=== PATIENT | male | born 1975 | race Caucasian/White ===

== ENCOUNTER 2018-06-22 10:08 | Emergency (ER) | payer OTHER, SELFPAY ==
[2018-06-22 10:23] VITALS: BP 162/99; PULSE 80; RESP 19; TEMP 37; O2SAT 95
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
--- NOTE | 2018-06-22 11:45 | PC.NURSE ---
ambulate to room 12, cooperative with care, with good eye contact. skin warm dry pink.
[2018-06-22 12:05] VITALS: BP 141/93; PULSE 71; RESP 17; O2SAT 97
== END 2018-06-22 12:08 | disposition home or self-care (01) ==
PROVIDERS: Emergency Provider Emergency Medicine
DX: F41.9 Anxiety disorder, unspecified (principal); F43.9 Reaction to severe stress, unspecified
CPT/HCPCS: 99282; 99283

== ENCOUNTER → 2018-06-29 09:34 | Outpatient (CLI) | payer OTHER, SELFPAY ==
[2018-06-29 10:00] LABS: Add Manual Diff / Slide Review NO; Basophils Absolute Auto 100 /uL (0-100); Eosinophils Absolute Auto 200 /uL (0-450); Hematocrit 43.3 % (41-53); Hemoglobin 14.9 g/dL (13.5-17.5); Lymphocytes Absolute Auto 1500 /uL (1100-4500); Lymphocytes Percent Auto 29.2 % (25-40); Mean Corpuscular HGB Conc 34.5 % (30-36); Mean Corpuscular Hemoglobin 30.6 PG (26-34); Mean Corpuscular Volume 88.6 fL (80-100); Monocytes Absolute Auto 500 /uL (0-900); Monocytes Percent Auto 9.9 % (3-14); Neutrophils Absolute Auto 2900 /uL (1500-7000); Neutrophils Percent Auto 56.9 % (50-75); Platelet Count 341 X10^3/uL (150-400); Red Blood Cell Count 4.89 X10^6/uL (4.5-5.9); Red Cell Distribution Width 12.8 % (11.6-14.8)
[2018-06-29 10:49] LABS: Alanine Aminotransferase 25 IU/L (21-72); Albumin 4.8 g/dL (3.5-5.0); Albumin Globulin Ratio 1.5 (1.0-2.8); Alkaline Phosphatase 59 U/L (38-126); Aspartate Aminotransferase 16 IU/L (17-59); BUN Creatinine Ratio 12.5 (6-22); Bilirubin Total 0.6 mg/dL (0.2-1.3); Blood Urea Nitrogen 10 mg/dL (9-20); Calcium 10.3 mg/dL (8.4-10.2); Carbon Dioxide 25 mmol/L (22-32); Chloride 104 mmol/L (98-107); Estimated Glomerular Filt Rate > 60.0 mL/min (>60); Globulin 3.1 g/dL (1.7-4.1); Glucose 105 mg/dL (70-100); HEMOLYSIS < 15 (0-50); Potassium 4.6 mmol/L (3.4-5.1); Sodium 139 mmol/L (137-145); Total Protein 7.9 g/dL (6.3-8.2)
[2018-06-29 11:17] LABS: TSH w/ Reflex to FT4 1.71 uIU/mL (0.47-4.68)
== END ==
PROVIDERS: Visit Provider Hospitalist
DX: F32.9 Major depressive disorder, single episode, unspecified (principal); F41.9 Anxiety disorder, unspecified
CPT/HCPCS: 36415; 80053; 84443; 85025

== ENCOUNTER → 2019-09-09 09:48 | Outpatient (CLI) | payer OTHER, SELFPAY ==
[2019-09-09 10:37] LABS: Add Manual Diff / Slide Review NO; Basophils Absolute Auto 0 /uL (0-100); Basophils Percent Auto 0.5 % (0-2); Eosinophils Absolute Auto 100 /uL (0-450); Eosinophils Percent Auto 2.5 % (2-4); Hematocrit 44.3 % (41-53); Hemoglobin 15.7 g/dL (13.5-17.5); Lymphocytes Absolute Auto 1300 /uL (1100-4500); Lymphocytes Percent Auto 27.5 % (25-40); Mean Corpuscular HGB Conc 35.5 % (30-36); Mean Corpuscular Hemoglobin 31.8 PG (26-34); Mean Corpuscular Volume 89.6 fL (80-100); Monocytes Absolute Auto 400 /uL (0-900); Monocytes Percent Auto 7.4 % (3-14); Neutrophils Absolute Auto 3000 /uL (1500-7000); Neutrophils Percent Auto 62.1 % (50-75); Platelet Count 302 X10^3/uL (150-400); Red Blood Cell Count 4.94 X10^6/uL (4.5-5.9); Red Cell Distribution Width 13.1 % (11.6-14.8); White Blood Cell Count 4.8 X10^3/uL (4.5-11.0)
[2019-09-09 11:25] LABS: Alanine Aminotransferase 40 IU/L (<50); Albumin 4.6 g/dL (3.5-5.0); Albumin Globulin Ratio 1.6 (1.0-2.8); Alkaline Phosphatase 56 U/L (38-126); Aspartate Aminotransferase 28 IU/L (17-59); BUN Creatinine Ratio 14.1 (6-22); Bilirubin Total 0.5 mg/dL (0.2-1.3); Blood Urea Nitrogen 10 mg/dL (9-20); Carbon Dioxide 22 mmol/L (22-32); Chloride 108 mmol/L (98-107); Cholesterol 239 mg/dL (140-199); Estimated Glomerular Filt Rate > 60.0 mL/min (>60); Globulin 2.8 g/dL (1.7-4.1); Glucose 123 mg/dL (70-100); HDL Cholesterol 38 mg/dL (40-60); HEMOLYSIS < 15 (0-50); LDL Cholesterol Calculated 177 mg/dL (<100); Potassium 4.5 mmol/L (3.4-5.1); Sodium 140 mmol/L (137-145); Total Protein 7.4 g/dL (6.3-8.2); Triglycerides 119 mg/dL (35-150)
[2019-09-09 11:53] LABS: TSH w/ Reflex to FT4 1.45 uIU/mL (0.47-4.68)
== END ==
PROVIDERS: PCP Internal Medicine; Referring Provider Internal Medicine; Visit Provider Internal Medicine
DX: Z13.1 Encounter for screening for diabetes mellitus (principal); Z13.6 Encounter for screening for cardiovascular disorders; E78.00 Pure hypercholesterolemia, unspecified; F43.20 Adjustment disorder, unspecified; G89.29 Other chronic pain; M25.511 Pain in right shoulder
CPT/HCPCS: 36415; 80053; 80061; 84443; 85025

== ENCOUNTER → 2020-03-08 11:30 | Outpatient (CLI) | payer OTHER, SELFPAY ==
[2020-03-08 12:53] LABS: BUN Creatinine Ratio 11.5 (6-22); Blood Urea Nitrogen 9 mg/dL (9-20); Calcium 9.6 mg/dL (8.4-10.2); Carbon Dioxide 24 mmol/L (22-32); Chloride 105 mmol/L (98-107); Cholesterol 250 mg/dL (140-199); Estimated Glomerular Filt Rate > 60.0 mL/min (>60); Glucose 104 mg/dL (70-100); HDL Cholesterol 38 mg/dL (40-60); HEMOLYSIS < 15 (0-50); LDL Cholesterol Calculated 183 mg/dL (<100); Sodium 139 mmol/L (137-145); Triglycerides 143 mg/dL (35-150)
[2020-03-08 12:57] LABS: Lithium < 0.2 mmol/L (0.6-1.2)
== END ==
PROVIDERS: PCP Internal Medicine; Referring Provider Internal Medicine; Visit Provider Psychiatry & Neurology Psychiatry
DX: F31.9 Bipolar disorder, unspecified (principal); E78.00 Pure hypercholesterolemia, unspecified
CPT/HCPCS: 36415; 80048; 80061; 80178

== ENCOUNTER → 2020-03-23 13:57 | Outpatient (CLI) | payer OTHER, SELFPAY ==
[2020-03-27 06:26] LABS: Percent Free Testosterone 4.19 % (1.50-4.20); Testosterone Free 14.07 ng/dL (5.00-21.00); Testosterone Total 335.8 ng/dL (264.0-916.0)
== END ==
PROVIDERS: PCP Internal Medicine; Referring Provider Internal Medicine; Visit Provider Internal Medicine
DX: N52.9 Male erectile dysfunction, unspecified (principal); R53.83 Other fatigue
CPT/HCPCS: 36415; 84402; 84403

== ENCOUNTER → 2023-03-25 08:35 | Outpatient (CLI) | payer OTHER, SELFPAY ==
[2023-03-25 10:13] LABS: Add Manual Diff / Slide Review NO; Basophils Absolute Auto 0 /uL (0-100); Basophils Percent Auto 0.4 % (0-2); Eosinophils Absolute Auto 100 /uL (0-450); Eosinophils Percent Auto 1.8 % (2-4); Hematocrit 42.1 % (41-53); Hemoglobin 14.5 g/dL (13.5-17.5); Lymphocytes Absolute Auto 1400 /uL (1100-4500); Lymphocytes Percent Auto 24.6 % (25-40); Mean Corpuscular HGB Conc 34.4 % (30-36); Mean Corpuscular Hemoglobin 30.6 PG (26-34); Mean Corpuscular Volume 89.1 fL (80-100); Monocytes Absolute Auto 400 /uL (0-900); Monocytes Percent Auto 7.1 % (3-14); Neutrophils Absolute Auto 3700 /uL (1500-7000); Neutrophils Percent Auto 66.1 % (50-75); Platelet Count 311 X10^3/uL (150-400); Red Blood Cell Count 4.73 X10^6/uL (4.5-5.9); Red Cell Distribution Width 13.5 % (11.6-14.8); White Blood Cell Count 5.6 X10^3/uL (4.5-11.0)
[2023-03-25 10:22] LABS: Hemoglobin A1C% w Est Avg Glu 5.4 % (4.0-6.0)
[2023-03-25 10:28] LABS: Alanine Aminotransferase 38 IU/L (<50); Albumin 4.1 g/dL (3.5-5.0); Albumin Globulin Ratio 1.4 (1.0-2.8); Alkaline Phosphatase 57 U/L (38-126); Aspartate Aminotransferase 26 IU/L (17-59); BUN Creatinine Ratio 15.7 (6-22); Bilirubin Total 0.7 mg/dL (0.2-1.3); Blood Urea Nitrogen 11 mg/dL (9-20); Calcium 9.6 mg/dL (8.4-10.2); Carbon Dioxide 23 mmol/L (22-32); Chloride 105 mmol/L (98-107); Cholesterol 240 mg/dL (140-199); Estimated Glomerular Filt Rate > 60 mL/min (>60); Glucose 106 mg/dL (70-100); HDL Cholesterol 45 mg/dL (40-60); HEMOLYSIS < 15 (0-50); LDL Cholesterol Calculated 156 mg/dL (<100); Potassium 4.4 mmol/L (3.4-5.1); Sodium 137 mmol/L (137-145); Total Protein 7.1 g/dL (6.3-8.2); Triglycerides 197 mg/dL (35-150)
[2023-03-25 10:36] LABS: Vitamin D 25 Hydroxy (D3) 21.9 ng/mL (30.0-100.0)
[2023-03-25 10:49] LABS: Free T3, Triiodothyronine Free 3.83 pg/mL (2.77-5.27); Free T4, Direct Thyroxine 1.09 ng/dL (0.78-2.19); T4 Total Thyroxine 7.33 ug/dL (5.5-11.0)
[2023-03-25 10:53] LABS: Estradiol, Total 41.7 pg/mL
[2023-03-25 10:56] LABS: Prostate Specific Antigen 0.584 ng/mL (0.10-4.00)
[2023-03-25 11:02] LABS: Thyroid Stimulating Hormone 2.03 uIU/mL (0.47-4.68)
[2023-03-25 11:32] LABS: Vitamin B12 286 pg/mL (239-931)
[2023-03-26 08:26] LABS: Thyroid Peroxidase Antibodies 13 IU/mL (0-34)
[2023-03-26 14:24] LABS: Sex Hormone Binding Globulin 20.7 nmol/L (16.5-55.9)
[2023-03-26 19:06] LABS: Anti Thyroglobulin Antibody <1.0 IU/mL (0.0-0.9)
[2023-03-28 00:56] LABS: Insulin Level Total 11.8 uIU/mL (2.6-24.9)
[2023-04-01 12:36] LABS: Pregnenolone <10 ng/dL (.)
[2023-04-03 17:48] LABS: Percent Free Testosterone 3.23 % (1.50-4.20); Testosterone Free 8.93 ng/dL (5.00-21.00); Testosterone Total 276.4 ng/dL (264.0-916.0)
== END ==
LOC: LAB 08:44
PROVIDERS: PCP Internal Medicine; Referring Provider Nurse Practitioner Family; Visit Provider Nurse Practitioner Family
DX: Z13.29 Encounter for screening for other suspected endocrine disorder (principal); E03.9 Hypothyroidism, unspecified; Z86.39 Personal history of other endocrine, nutritional and metabolic disease; Z51.81 Encounter for therapeutic drug level monitoring; Z79.890 Hormone replacement therapy; F41.9 Anxiety disorder, unspecified; R53.83 Other fatigue; E66.9 Obesity, unspecified
CPT/HCPCS: 36415; 80053; 80061; 82306; 82607; 82627; 82670; 82746; 83036; 83525; 84140; 84153; 84270; 84402; 84403; 84436; 84439; 84443; 84481; 84482; 85025; 86376; 86800

== ENCOUNTER 2024-05-19 10:20 | Emergency (ER) | payer OTHER, SELFPAY ==
[2024-05-19 10:43] VITALS: BP 157/92; PULSE 83; RESP 16; TEMP 36.1; O2SAT 98; BMI 30.6
--- NOTE | 2024-05-19 11:20 | PC.NURSE ---
patient presented to the ED with 8/10 pain in his left lower back and intermittent numbness and tingling down his left leg. He denies bowel or bladder dysfunction, or fevers. No GI/ issues as well. He has a history of bulging disks at the level of L4-5 and has experienced sciatica in the past. He states that this does not feel like the same pain. He is most comfortable in the standing position and states that sitting causes the pain to get worse. His leg currently is slightly numb with tingling while sitting reclined in a recliner. When he stands up he gets a brief moment of intense pain with a throbbing sensation that diminishes as he begins to walk.
--- NOTE | 2024-05-19 11:38 | DI.MRI.S_ITS ---
PROCEDURE: MR LUMBAR SPINE WO CON INDICATIONS: Left leg weakness and paresthesia TECHNIQUE: Noncontrast sagittal T1 spin echo and T2 fast echo, sagittal STIR, and T2 fast spin echo through the lumbar spine. In cases with scoliosis, additional coronal T2 fast spin echo may be performed. COMPARISON: None. FINDINGS: Image quality: Excellent Alignment of the lumbar spine is anatomic. Vertebral body height of the lumbar spine are well maintained. Multilevel disc desiccation disc bulge. Marrow signal is normal for age. Conus terminates at the level of T12-L1, and is unremarkable. Right neural foraminal stenosis: Mild at L3-4, L4-5. Moderate at L5-S1. Left neural foraminal stenosis: Moderate at L3-4, mild at L4-5 and L5-S1. Axial images: Congenital narrowing of the central canal. T12-L1: No central canal stenosis. L1-2: No central canal stenosis. L2-3: Mild bilateral facet arthropathy. No central canal stenosis. L3-4: Left foraminal disc protrusion, resulting in complete effacement of the left lateral recess. No central canal stenosis. L4-5: Right paracentral disc protrusion, resulting complete effacement of the right lateral recess. Mild bilateral facet arthropathy. Severe central canal stenosis. L5-S1: Mild bilateral facet arthropathy. Disc bulge. Mild central canal stenosis. Visualized sacrum is intact. No abdominal aortic aneurysm. IMPRESSION: 1. Multilevel degenerative changes lumbar spine, most pronounced at L4-5, where there is severe central canal stenosis and mild bilateral neural from stenosis. 2. Moderate neural foraminal stenosis at right L5-S1 and at left L3-4, with associated complete effacement of the lateral recess. Dictated by: Vy Gonzales M.D. on 05/19/2024 at 15:12 Approved by: Vy Gonzales M.D. on 05/19/2024 at 15:20
[2024-05-19] MEDS: OXYCODONE/ACETAMINOPHEN 5/325 TABLET 2 TAB PO (11:41)
--- NOTE | 2024-05-19 11:41 | ED.BACK ---
HPI - Back Pain/Injury <LAURA Curran - Last Filed: 05/19/24 15:42> General Chief Complaint: Back Pain/Injury Stated Complaint: severe lower left back pain and left leg pain Time Seen by Provider: 05/19/24 11:12 History of Present Illness HPI Narrative: 46-year-old male, never smoker, presents to the emergency department with complaints of left lower back pain weakness and numbness and tingling entire left leg over the last 3 days. Patient reports that his initial left lower back pain began approximately 3 weeks ago without any trauma or known cause. Patient did see a family doctor who prescribed ibuprofen, cyclobenzaprine, provided a lidocaine injection and scheduled a MRI for June 01. Patient reports that symptoms were mitigated but never fully resolved. Patient reports that over the last 3 days symptoms have worsened to the point where he can barely walk, can not get in a position of comfort and has not slept. Patient also endorses that receives a injection of ?testosterone pellets? into the buttock and his last injection was in February 2024. Patient does not recall any problems with that injection. Initial reports of pain are 8/10 but worsens to 15/10. Patient does report he has a history high blood pressure readings and is following up with his family doctor for this. Related Data Previous Rx's Medication Instructions Recorded clonazepam 0.5 mg tablet 0.5 mg PO BID #60 tabs 02/14/22 sildenafil 100 mg tablet (Viagra) 50 - 100 mg (0.5 - 1 x 100 mg) PO 02/14/22 DAILY PRN sexual activity #90 tabs methylprednisolone 4 mg tablets in See Rx Instructions PO .COMPLEX 05/19/24 a dose pack (Medrol (Faheem)) Back pain #21 ea oxycodone-acetaminophen 7.5 mg-325 1 tab PO Q6H PRN pain #10 tabs 05/19/24 mg tablet (Percocet) Allergies Allergy/AdvReac Type Severity Reaction Status Date / Time diphenhydramine AdvReac Unknown Makes me Verified 05/19/24 10:43 [DIPHENHYDRAMINE] feel crazy Review of Systems <LAURA Curran - Last Filed: 05/19/24 15:42> Review of Systems Narrative: Narrative: See HPI. GENERAL: Denies chills, fatigue, fever, sweats. HEENT: Denies sinus pain, ear pain, sore throat, difficulty swallowing, dizziness. RESPIRATORY: Denies dyspnea, cough, wheezing, sputum. CARDIOVASCULAR: Denies chest pain, palpitations, edema. GASTROINTESTINAL: Denies nausea, vomiting, abdominal pain, diarrhea, constipation. : Denies dysuria, frequency, incontinence, hematuria, urinary retention, flank pain. MSK: Denies joint pain, or bony pain. Endorses weakness and numbness of left leg. SKIN: Denies rash, skin lesions, or pruritis. NEUROLOGIC: Denies dizziness, headache, confusion. Endorses weakness and numbness of left leg. PSYCHIATRIC: No concerning psychosocial issues. Patient History <LAURA Curran - Last Filed: 05/19/24 15:42> Medical History Adjustment disorder Chronic right shoulder pain (11/25/16) Pure hypercholesterolemia (11/25/16) Family History Father Age: 68 Cancer Mother Age: 69 Diabetes mellitus Social History Smoking Status: Never smoker Smoking Status: Never smoker alcohol intake frequency: 0-2 drinks per day Exam <LAURA Curran - Last Filed: 05/19/24 15:42> Narrative Exam Narrative: Exam Narrative: GENERAL: This is a well-nourished, well-developed patient, in no acute distress. HEAD: Atraumatic. Normocephalic. EYES: Pupils equal round and reactive. Extraocular motions intact. No scleral icterus, injection or drainage. ENT: Nose without bleeding, purulent drainage. Airway patent. NECK: Trachea midline. No JVD. CARDIOVASCULAR: Regular rate and rhythm without murmurs, peripheral pulses intact, cap refill <2 sec. RESPIRATORY: Breath sounds equal and clear bilaterally. No wheezes, rales, or rhonchi. No cough. No increased respiratory effort. No accessory muscle use. GASTROINTESTINAL: Abdomen soft, non-tender, nondistended without guarding or rebound. No suprapubic pain. MSK: Moves all extremities. Normal range of motion, no clubbing or edema. Numbness and tingling left leg. NEURO: A&O x 3. SKIN: Warm, dry, no rashes or lesions noted. BACK tool tender but free of any obvious external abnormalities. There is no asymmetry, swelling, bruising or wound. There is no paraspinal tenderness or CVA tenderness. SI joints nontender. No pain over spinous processes. Symptoms of cauda equina such as saddle anesthesia is a possibility secondary to left leg weakness and paresthesia.. Numbness and tingling left leg. ROM is full and without pain. SLE is negative bilaterally. Reflexes 2-3 at patella and achilles bilaterally. L<R Resistive strengths are within normal limits L<R Gait is antalgic. Initial Vital Signs Initial Vital Signs: Vital Signs Temperature 97.0 F L 05/19/24 10:43 Pulse Rate 83 05/19/24 10:43 Respiratory Rate 16 05/19/24 10:43 Blood Pressure 157/92 H 05/19/24 10:43 Pulse Oximetry 98 05/19/24 10:43 Oxygen Delivery Method Room Air 05/19/24 10:43 Reviewed <Gillian Ashley MD - Last Filed: 05/20/24 08:12> Initial Vital Signs Initial Vital Signs: Vital Signs Temperature 97.0 F L 05/19/24 10:43 Pulse Rate 83 05/19/24 10:43 Respiratory Rate 16 05/19/24 10:43 Blood Pressure 157/92 H 05/19/24 10:43 Pulse Oximetry 98 05/19/24 10:43 Oxygen Delivery Method Room Air 05/19/24 10:43 Course <LAURA Curran - Last Filed: 05/19/24 15:42> Orders Ordered: Discontinued Medications Oxycodone/Acetaminophen (Oxycodone/Acetaminophen 5/325 Tablet) 2 tab PO NOW ONE Stop: 05/19/24 11:39 Last Admin: 05/19/24 11:41 Dose: 2 tab Documented By: ZGG Vital Signs Vital signs: Vital Signs - 8 hr 05/19/24 10:43 05/19/24 15:05 Temperature 97.0 F L Pulse Rate 83 98 H Respiratory Rate 16 22 Blood Pressure 157/92 H 150/107 H Pulse Oximetry 98 97 Oxygen Delivery Method Room Air Room Air <Gillian Ashley MD - Last Filed: 05/20/24 08:12> Orders Ordered: Discontinued Medications Oxycodone/Acetaminophen (Oxycodone/Acetaminophen 5/325 Tablet) 2 tab PO NOW ONE Stop: 05/19/24 11:39 Last Admin: 05/19/24 11:41 Dose: 2 tab Documented By: TONG Vital Signs Vital signs: Vital Signs - 8 hr 05/19/24 10:43 05/19/24 15:05 Temperature 97.0 F L Pulse Rate 83 98 H Respiratory Rate 16 22 Blood Pressure 157/92 H 150/107 H Pulse Oximetry 98 97 Oxygen Delivery Method Room Air Room Air MDM - Back Pain/Injury <LAURA Curran - Last Filed: 05/19/24 15:42> Differential Diagnosis Differential diagnosis: Likely lumbar radiculopathy, strain of lumbar region and other (Cauda equina) Imaging Data MR - Lumbar: Radiologist's Impression: [address] [address] Magnetic Resonance Report Signed Patient: Truong Jewell MR#: [id number] : 1975 Acct:[id number] Age/Sex: 48 / M Date of Service: 05/19/24 Loc: ED Accession Number: [id number] Procedure: MR lumbar spine wo con Ordering Provider: Willy Hernandez PROCEDURE: MR LUMBAR SPINE WO CON INDICATIONS: Left leg weakness and paresthesia TECHNIQUE: Noncontrast sagittal T1 spin echo and T2 fast echo, sagittal STIR, and T2 fast spin echo through the lumbar spine. In cases with scoliosis, additional coronal T2 fast spin echo may be performed. COMPARISON: None. FINDINGS: Image quality: Excellent Alignment of the lumbar spine is anatomic. Vertebral body height of the lumbar spine are well maintained. Multilevel disc desiccation disc bulge. Marrow signal is normal for age. Conus terminates at the level of T12-L1, and is unremarkable. Right neural foraminal stenosis: Mild at L3-4, L4-5. Moderate at L5-S1. Left neural foraminal stenosis: Moderate at L3-4, mild at L4-5 and L5-S1. Axial images: Congenital narrowing of the central canal. T12-L1: No central canal stenosis. L1-2: No central canal stenosis. L2-3: Mild bilateral facet arthropathy. No central canal stenosis. L3-4: Left foraminal disc protrusion, resulting in complete effacement of the left lateral recess. No central canal stenosis. L4-5: Right paracentral disc protrusion, resulting complete effacement of the right lateral recess. Mild bilateral facet arthropathy. Severe central canal stenosis. L5-S1: Mild bilateral facet arthropathy. Disc bulge. Mild central canal stenosis. Visualized sacrum is intact. No abdominal aortic aneurysm. IMPRESSION: 1. Multilevel degenerative changes lumbar spine, most pronounced at L4-5, where there is severe central canal stenosis and mild bilateral neural from stenosis. 2. Moderate neural foraminal stenosis at right L5-S1 and at left L3-4, with associated complete effacement of the lateral recess. Dictated by: Vy Gonzales M.D. on 05/19/2024 at 15:12 Approved by: Vy Gonzales M.D. on 05/19/2024 at 15:20 MDM Narrative Medical decision making narrative: 48-year-old male with worsening left lower back pain, weakness and paresthesia. Discussion with Dr. Ashley regarding treatment. MRI ordered of lumbar region. Percocet x2 given to patient for pain control. Initial reports of pain were 8/10 that improved to 5/10. MRI revealed multilevel degenerative changes of the lumbar spine with foramental narrowing. Explained findings to patient and that emergent care is not needed at this time. Will treat with short course of pain medication and steroids. Discussed plan of care and worsening symptoms that would necessitate a return visit. Patient to follow up with family doctor christi. Patient verbalized understanding and was agreeable with course of action. Discharge Plan Departure Patient Disposition: Home Clinical Impression: Chronic low back pain Qualifiers: Back pain laterality: left Sciatica presence: without sciatica Qualified Code(s): M54.50 - Low back pain, unspecified Instructions: DI for Low Back Pain Activity Restrictions/Additional Instructions: *You have been diagnosed with low back pain. Your MRI revealed degenerative changes and stenosis. There is nothing emergent that needs to be done right now, but I recommend you follow up with your family doctor for a urgent referral to back/ spine surgery. I will treat you with pain medication and steroids. Please take these as prescribed. For any worsening symptoms, please return to the emergency department. Otherwise, follow up with your family doctor as needed. *What to do: *Please continue to take your regular medications as directed. [x ] New medication prescriptions sent to your pharmacy: [[facility]] [ ] New medication written as a paper prescription [ ] No new medications given *Please follow up with your primary care provider in 2-3 days, call for an appointment. Let them know you were seen in the Emergency Department and that we ask that you be seen in follow up. We will electronically transmit a record of today's note if your PCP is in our system *If you do not have a primary care provider please contact the [facility] Resource line at [phone]. They will ask some questions about your medical history and help get you set up with a doctor in the community. ? Return to ER if you should have any new, worsening or concerning symptoms, such as worsening pain, severe headache, confusion, chest pain, difficulty breathing, fever greater than 101 F, shaking chills, persistent vomiting to the point that you cannot drink fluids, or other new or worsening symptoms. Prescriptions: New oxycodone-acetaminophen [Percocet] 7.5-325 mg tablet 1 tab PO Q6H PRN (Reason: pain) Qty: 10 0RF methylprednisolone [Medrol (Faheem)] 4 mg tablets,dose pack See Rx Instructions .ROUTE .COMPLEX Qty: 21 0RF Rx Instructions: for 6 days No Action clonazepam 0.5 mg tablet 0.5 mg PO BID Qty: 60 3RF sildenafil [Viagra] 100 mg tablet 50 - 100 mg PO DAILY PRN (Reason: sexual activity) Qty: 90 0RF Rx Instructions: administer 30 minutes to 4 hours before activity Stand Alone Forms: Patient Portal/API/Survey ED Sign-out <Gillian Ashley MD - Last Filed: 05/20/24 08:12> Cosign ED Attending Cosignature Attestation: Case was discussed in real-time with Mr. Hernandez. Given the acute onset of paresthesia and question of increasing weakness did agree with the ordering MRI. Reviewed MRI. Does show significant pathology but not emergent pathology. Recommended steroid pulse dose, follow up with his primary care physician and see if his referral to Neurosurgery/spine surgery can be expedited now at his MRI has been completed. Also agreed with recommendation for Percocet for direct pain control.
[2024-05-19 15:05] VITALS: BP 150/107; PULSE 98; RESP 22; O2SAT 97
[2024-05-19 15:48] VITALS: BP 167/98; PULSE 83; RESP 14; O2SAT 97
== END 2024-05-19 15:50 | disposition home or self-care (01) ==
PROVIDERS: Emergency Provider Registered Nurse
DX: M54.50 Low back pain, unspecified (principal); R20.0 Anesthesia of skin
CPT/HCPCS: 72148; 99283